=== PATIENT | male | born 1950 | race Caucasian/White ===

== ENCOUNTER → 2016-07-10 | Outpatient (CLI) | payer MEDICARE ==
[~2016-07-10] MED LIST: ASPI-557 PO; CELE200C PO; FISH1CAP2 PO; LOVA10TA2 PO; METO25TA6 PO; OMEP20CA10 PO; TRAM50TA4 PO; TRAZ-170 PO
--- NOTE | 2016-07-11 08:21 | DI ---
Indication: ITS.REASON: J32.0 CHRONIC SINUSITIS OF BOTH MAXILLARY SINUSES; J34.2 NASAL SE PROCEDURE: CT SINUSES W/O CONTRAST: Encounter: Initial Comparison: None Technique: Axial CT images were performed through the sinuses without intravenous contrast. Coronal and sagittal two-dimensional reformats. Automated Exposure Control and Iterative Reconstruction dose reducing techniques were utilized. Findings: The maxillary sinuses show trace mucosal thickening inferiorly but are otherwise clear. The ostiomeatal units are patent bilaterally. The frontal sinuses are clear. The sphenoid sinuses are clear. Sphenoid ostia are patent. The ethmoid air cells are clear as are the visualized mastoids. There is mild rightward nasal septal bowing. Impression: No significant sinus disease or evidence of acute sinusitis. .
== END ==
LOC: IMA 17:09
PROVIDERS: ATTEND Registered Nurse
DX: J34.89 Other specified disorders of nose and nasal sinuses (principal); J34.2 Deviated nasal septum; J32.0 Chronic maxillary sinusitis